=== PATIENT | female | born 1945 | race Caucasian/White ===

== ENCOUNTER 2017-06-08 10:36 | Observation (INO) | payer MEDICARE, MEDICAID ==
[~2017-06-08] VITALS: Ht 160 cm; Wt 77.7 kg
[~2017-06-08 10:36] MED LIST: BIOT10004 PO; CLON0.2T PO; CLOP75 PO; CORE25TA PO; HAWT150C PO; HYDR50TA5 PO; LISI-363 PO; PERC10TA27 PO; PRAV20 PO; VITA-13 PO; [UNRECOGNIZED DRUG - REMARK] PO
[2017-06-08 10:41] VITALS: BP 198/92; PULSE 72; RESP 20; TEMP 97.9; O2SAT 98
[2017-06-08 10:53] VITALS: BP 175/98; PULSE 72; RESP 16; O2SAT 97
--- NOTE | 2017-06-08 11:34 | RADRPT ---
EXAM DATE/TIME: 06/08/2017 11:05 [place] COMPARISON: CHEST SINGLE AP, February 16, 2016, 19:48. INDICATIONS : Short of breath. Possible hair clip in throat swallowed this morning. MEDICAL HISTORY : Hypertension. SURGICAL HISTORY : Lap band. ENCOUNTER: Initial ACUITY: 1 day PAIN SCORE: 7/10 LOCATION: Bilateral Throat. FINDINGS: A single portable frontal view the chest shows a radiopaque density overlying the sternal notch on th is frontal view. The heart is mildly large. Left basilar scarring is stable. A focal convexities seen involving the medial left hemithorax. This is more pronounced from the prior study. Nodularity of th e right hilum is stable. No effusions. CONCLUSION: 1. Radiopaque density projecting over the area of the lower neck on this single projection. I cannot exclude a foreign body within the trachea or esophagus. 2. Focal convexity involve the left hemidiaphragm is more pronounced than the prior exam. Although th is could relate to worsening eventration of the diaphragm I cannot exclude a mass. CT of the thorax i s suggested at some point to further evaluate. Maurizio Ferrer Jr., MD on June 08, 2017 at 11:30 Board Certified Radiologist. This report was verified electronically.
[2017-06-08 11:58] LABS: AUTOMATED NEUTROPHIL # 5.8 TH/MM3 (1.8-7.7); BASOPHIL % 0.6 % (0.0-2.0); EOSINOPHIL # 0.1 TH/MM3 (0-0.4); HEMATOCRIT 35.2 % (35.0-46.0); HEMO FLAGS DIFF FINAL; LYMPH % 20.1 % (9.0-44.0); LYMPHOCYTE # 1.6 TH/MM3 (1.0-4.8); MEAN CELL VOLUME 83.7 FL (80.0-100.0); MEAN CORPUSCULAR HEMOGLOBIN 25.5 PG (27.0-34.0); MEAN CORPUSCULAR HGB CONC 30.5 % (32.0-36.0); MONO % 4.9 % (0.0-8.0); NEUT % 73.4 % (16.0-70.0); PLATELET COUNT 250 TH/MM3 (150-450); RED BLOOD COUNT 4.21 MIL/MM3 (4.00-5.30); RED CELL DISTRIBUTION WIDTH 15.3 % (11.6-17.2); WHITE BLOOD COUNT 7.9 TH/MM3 (4.0-11.0)
[2017-06-08 12:09] LABS: APTT (PATIENT) 28.4 SEC (24.3-30.1); INTERNATIONAL NORMALIZED RATIO 0.9 RATIO; PROTHROMBIN TIME - PATIENT 10.4 SEC (9.8-11.6)
[2017-06-08 12:14] LABS: BICARBONATE 27.5 MEQ/L (21.0-32.0); POTASSIUM 4.3 MEQ/L (3.5-5.1)
[2017-06-08] MEDS ORDERED: PROPOFOL 200 MG/20 ML AMP IV PUSH ONE (12:44)
[2017-06-08] MEDS ORDERED: DO NOT ADM ANY ANTICOAGULANT DRUGS PRN (13:12)
[2017-06-08] MEDS ORDERED: ONDANSETRON HCL 4 MG/2 ML VIAL IV PRN (13:15)
[2017-06-08] MEDS ORDERED: *morphine SULFATE 8 MG/ML PERIprocedure ONLY ONE (13:29)
--- NOTE | 2017-06-08 13:40 | PD ---
HPI Chief Complaint: Foreign Body Time Seen by Provider: 10:47 Travel History International Travel<30 days: No Contact w/Intl Traveler<30days: No History of Present Illness HPI 72-year-old female presents with feeling foreign body in her throat that she accidentally got in there. She has a history of lap band that she follows with Dr. Boyle. She had an outpatient x-ray that showed that she had ingested a foreign body and is here for the operating room. She states no other concerns at this moment. PFSH Past Medical History Narrative Medical By records Arthritis: Yes Autoimmune Disease: No Blood Disorders: No (N) Cancer: No Cardiac Catheterization: Yes Cardiovascular Problems: Yes High Cholesterol: Yes Congestive Heart Failure: Yes Cerebrovascular Accident: Yes Diabetes: Yes (HX-PT HAD LAP BAND SX) Diminished Hearing: No Endocrine: No Genitourinary: No Hepatitis: No Hiatal Hernia: No Hypertension: Yes Immune Disorder: No Implanted Vascular Access Dvce: Yes Musculoskeletal: Yes (ARTHRITIS---BACK PAIN) Neurologic: Yes (NEUROPATHY IN FEET) Psychiatric: No Reproductive: No Respiratory: No Thyroid Disease: No PNEUMOCCOCAL Vaccine (Year): 2 : 1 Para: 1 Miscarriage: 0 : 0 Tubal Ligation: Yes Past Surgical History Narrative Surgical By records Abdominal Surgery: Yes (LAP BAND) Gynecologic Surgery: Yes (TUBAL LIGATION) Joint Replacement: Yes (LEFT ANKLE 2004) Oral Surgery: Yes (TONSILLECTOMY ADNOIDECTOMY) Pacemaker: No Tonsillectomy: Yes Other Surgery: Yes (lap band BY MELODY) Social History Alcohol Use: No Tobacco Use: No Substance Use: No Allergies-Medications (Allergen,Severity, Reaction): Coded Allergies: Sulfa (Sulfonamide Antibiotics) (Unverified Allergy, Severe, UNKNOWN, 05/31) tetanus toxoid, adsorbed (Unverified Allergy, Severe, CHEST PAIN, 05/31/17) banana (Unverified Allergy, Intermediate, HIVES, 05/31/17) meperidine (Unverified Allergy, Mild, HALLUCINATES, 05/31/17) cortisone (Unverified Adverse Reaction, Severe, SKIN BREAKDOWN, 05/31/17) potassium (Unverified Adverse Reaction, Severe, CRAMPS, 05/31/17) "BODY DOES NOT GET RID OF IT" potassium bicarbonate (Unverified Adverse Reaction, Severe, CRAMPS, ) "BODY DOES NOT GET RID OF IT" potassium chloride (Unverified Adverse Reaction, Severe, CRAMPS, 05/31/17) "BODY DOES NOT GET RID OF IT" potassium iodide (Unverified Adverse Reaction, Severe, CRAMPS, 05/31/17) "BODY DOES NOT GET RID OF IT" potassium phosphate (Unverified Adverse Reaction, Severe, CRAMPS, 05/31/17) "BODY DOES NOT GET RID OF IT" Uncoded Allergies: ADHESIVE TAPE (Allergy, Severe, BLISTER, 03/01/13) Reported Meds & Prescriptions Reported Meds & Active Scripts Active Review of Systems ROS Limitations: Other: (going to the OR) Except as stated in HPI: all other systems reviewed are Neg Physical Exam Exam Limitations: Other: (limited as heading to OR) Narrative GENERAL: Well-nourished, well-developed patient. SKIN: Warm and dry. HEAD: Normocephalic and atraumatic. EYES: No injection or drainage. ENT: No nasal drainage noted. NECK: Supple, trachea midline. CARDIOVASCULAR: Regular rate and rhythm RESPIRATORY: No increased effort. No accessory muscle use. NEUROLOGICAL: Awake and alert. Moves all extremities. Normal speech. Data Data Last Documented VS Vital Signs Date Time Temp Pulse Resp B/P (MAP) Pulse Ox O2 Delivery O2 Flow Rate FiO2 06/08/17 10:53 72 16 175/98 (123) 97 Room Air 06/08/17 10:41 97.9 Orders Orders Complete Blood Count With Diff (06/08/17 10:47) Basic Metabolic Panel (Bmp) (06/08/17 10:47) Act Partial Throm Time (Ptt) (06/08/17 10:47) Prothrombin Time / Inr (Pt) (06/08/17 10:47) Chest, Single Ap (06/08/17 ) Electrocardiogram (06/08/17 ) Iv Access Insert/Monitor (06/08/17 10:47) Ecg Monitoring (06/08/17 10:47) Oximetry (06/08/17 10:47) Admit Order (Ed Use Only) (06/08/17 10:54) MDM Medical Decision Making Medical Screen Exam Complete: Yes Emergency Medical Condition: Yes Medical Record Reviewed: Yes (past history confirmed) Differential Diagnosis Ingestion, preop clearance, foreign body Narrative Course Patient will have lab work done and EKG for clearance for the operating room with Dr. Boyle. Questions are answered with patient Physician Communication Physician Communication Dr. Boyle saw patient in the ER and request labs and preop clearance and he will take her to the OR as she had an outpatient x-ray that showed foreign body ingestion, she is his lap band patient, place in same day surgery under his name Diagnosis Primary Impression: Foreign body of neck Tiffany Guo MD Jun 08, 2017 13:40
[2017-06-08] MEDS: PANTOPRAZOLE SODIUM 40 MG VIAL IV PUSH SCH (14:00)
[2017-06-08] MEDS: DEXT 5%-NACL 0.45% 1000 ML INJ 1,000 ML IV SCH ×2 (14:14→22:21)
[2017-06-08] MEDS: PIPERACIL-TAZO 3.375 GM PREMIX 50 ML IV SCH ×2 (14:39→22:21)
[2017-06-08 17:00] VITALS: BP 167/78; PULSE 74; RESP 14; TEMP 96.5; O2SAT 92
--- NOTE | 2017-06-08 18:02 | GIPROC ---
[facility] [address] [place] [facility]. [facility], [address] EGD PROCEDURE REPORT EXAM DATE: 06/08/2017 PATIENT NAME: Chrissy Osorio MR #: [id number] BIRTHDATE: 1945 ATTENDING: Prosper Marie MD ORDER #: [id number] ELECTRONIC EQUIPMENT REPAIRER: Denita Coleman and Claude Martinez STATUS: inpatient INDICATIONS: The patient is a 72 yr old female here for an EGD due to foreign body removal PROCEDURE PERFORMED: EGD w/ fb removal MEDICATIONS: Per Anesthesia and None. TOPICAL ANESTHETIC: none CONSENT: The patient understands the risks and benefits of the procedure and understands that these risks include, but are not limited to: sedation, allergic reaction, infection, perforation and/or bleeding. Alternative means of evaluation and treatment include, among others: physical exam, x-rays, and/or surgical intervention. The patient elects to proceed with this endoscopic procedure. medical equipment was checked for proper function. Hand hygiene and appropriate measures for infection prevention was taken. After the risks, benefits and alternatives of the procedure were thoroughly explained, Informed consent was verified, confirmed and timeout was successfully executed by the treatment team. The patient was anesthetized with anesthesia and the Cameramaax [id number] endoscope was introduced through the mouth and advanced. Identification of a foreign body lodged in the esophagus 15cm from incisors with small laceration and mild controlled bleeding. Tooth grasper used to retreive specimen. The scope was advanced to the first portion of the duodenum. Retroflexion was not performed The gastroscope was then slowly withdrawn and removed. ESOPHAGUS: Foreign body identified 15cm from incisors. ADVERSE EVENTS: There were no complications. IMPRESSIONS: 1. Foreign body identified and removed 15cm from incisors 2. small mucosal tears noted from FB 2. Retroflexion was not performed RECOMMENDATIONS: 1. Start PPI 2. Admit to hospital 3. UGI tomorrow PATIENT CONDITION: fair DISPOSITION: Observation REPEAT EXAM: NONE Prosper Marie MD eSigned: Prosper Marie MD 06/08/2017 6:02 PM cc: PATIENT NAME: Chrissy Osorio MR#: [id number]
[2017-06-08] MEDS ORDERED: HYDR-3801 PO (18:26)
--- NOTE | 2017-06-08 19:26 | EKG ---
Date Performed: 06/08/2017 Time Performed: 11:00:47 PTAGE: 72 years EKG: Sinus rhythm WITH FIRST DEGREE AV BLOCK LEFT BUNDLE BRANCH BLOCK ABNORMAL ECG PREVIOUS TRACING : 02/16/2016 21.44 Compared to prior tracing no significant change DOCTOR: Wilman Conner Interpretating Date/Time 06/08/2017 19:24:52
[2017-06-08 20:00] VITALS: BP 139/84; PULSE 68; RESP 18; TEMP 97.7; O2SAT 93
[2017-06-08 20:07] VITALS: PULSE 64
[2017-06-08 20:21] VITALS: O2SAT 98
--- NOTE | 2017-06-08 21:44 | PD.CONS ---
HPI Service [facility] . Consult Requested By Dr. Marie . Reason for Consult Medical management for hypertension and neuropathy. Primary Care Physician Rk Oliver DO . Diagnoses: (1) Foreign body in esophagus (2) Hypertension (3) Neuropathy History of Present Illness The patient is seen in the hospital room following EGD by Dr. Marie to remove foreign body from esophagus. Her only current complaint is severe neuropathic pain in her bilateral lower extremities - she takes Percocet at home for this. This morning, she was taking the medications that she had laid on her bedside table in the dark and accidentally grabbed a butterfly hair clip and swallowed it. She had immediate severe pain in the lower portion of her neck but no sensation of choking. She alerted EMS but they instructed her to see one of her physicians but did not feel like she needed to be transported to the hospital. She said she waited outside Dr. Boyle's office this morning and he ordered imaging at [facility] which showed the foreign body in her esophagus. She denies any chest pain or shortness of breath. She denies any recent illness, fevers, hemoptysis, hematemesis, black or bloody stools. She reports a chronic lung disease that she sees Dr. Gregg as an outpatient for. She says the disease is the result of having "whooping cough" as a child. She cannot recall the name of that disease but states the name is "long" and she denies any history of COPD, asthma, pulmonary fibrosis, bronchiectasis, or chronic bronchitis. She likely has an element of COPD given her smoking history. She has a chronic cough with green colored sputum and has an inhaler and nebulizer at home. She uses nebulizer twice daily and is not on home supplemental oxygen. No recent changes. Review of Systems Except as stated in HPI: all other systems reviewed are Neg Past Family Social History Allergies: Coded Allergies: Sulfa (Sulfonamide Antibiotics) (Unverified Allergy, Severe, UNKNOWN, 05/31) tetanus toxoid, adsorbed (Unverified Allergy, Severe, CHEST PAIN, 05/31/17) banana (Unverified Allergy, Intermediate, HIVES, 05/31/17) meperidine (Unverified Allergy, Mild, HALLUCINATES, 05/31/17) cortisone (Unverified Adverse Reaction, Severe, SKIN BREAKDOWN, 05/31/17) potassium (Unverified Adverse Reaction, Severe, CRAMPS, 05/31/17) "BODY DOES NOT GET RID OF IT" potassium bicarbonate (Unverified Adverse Reaction, Severe, CRAMPS, ) "BODY DOES NOT GET RID OF IT" potassium chloride (Unverified Adverse Reaction, Severe, CRAMPS, 05/31/17) "BODY DOES NOT GET RID OF IT" potassium iodide (Unverified Adverse Reaction, Severe, CRAMPS, 05/31/17) "BODY DOES NOT GET RID OF IT" potassium phosphate (Unverified Adverse Reaction, Severe, CRAMPS, 05/31/17) "BODY DOES NOT GET RID OF IT" Uncoded Allergies: ADHESIVE TAPE (Allergy, Severe, BLISTER, 03/01/13) Past Medical History Chronic lung disease - she sees Dr. Gregg as an outpatient History of diabetes mellitus requiring no medication since lap band in 2009 Hypertension requiring multiple medications for management Severe neuropathy in bilateral lower extremities Congestive heart failure 12-15 years ago; denies myocardial infarction or coronary artery disease, no recurrence in 12-15 years Left leg DVT 2 years ago with 6 weeks of anticoagulation following Possible TIA 1 year ago Acute kidney disease about one year ago that spontaneously resolved History of medication-related hyperkalemia - resolved COPD, emphysema, asthma, pulmonary fibrosis, bronchiectasis, CAD, GA, gastroesophageal esophageal reflux disease, liver problems, denies PE, CVA, seizure, or cancer history. Past Surgical History LAP-BAND with hiatal hernia repair 2009 - Dr. Boyle Right total hip replacement one year ago Tonsillectomy and adenoidectomy as a child Bilateral tubal ligation Left ankle repair . Reported Medications Respiratory nebulizer Respiratory inhaler - uncertain of name Reported Meds & Active Scripts Active Reported Clonidine Hcl (Clonidine HCl) 0.2 Mg Tab 0.2 Mg PO BID Pravastatin Sodium 20 Mg Tab 20 Mg PO DAILY Biotin 1 000 Tab 10,000 Mcg PO DAILY DOSE UNKNOWN Percocet 10-325 mg (Oxycodone-Acetaminophen 10-325 mg) 1 Tab 1 Tab PO QIDPRN Vitamin D3 (Cholecalciferol) 1,000 Unit Tab 1,000 Unit PO DAILY Lisinopril 20 mg (Lisinopril) 20 Mg Tab 1 Tab PO BID [place] 150 Mg Cap 150 Mg PO Hydrochlorothiazide 50 Mg Tab 50 Mg PO TID Coreg 25 mg (Carvedilol) 25 Mg Tab 1 Tab PO BID Hydralazine (Hydralazine HCl) 100 Mg Tab 50 Mg PO BID Take with meals . Active Ordered Medications Current Medications Propofol (Diprivan 200 Mg/20 ml Inj) 500 mg STK-MED ONCE IV PUSH ; Start at 12:44; Stop 06/08/17 at 12:54; Status DC Ondansetron HCl (Zofran Inj) 4 mg Q4H PRN IV NAUSEA OR VOMITING; Start at 13:15 Dextrose/Sodium Chloride 1,000 ml @ 125 mls/hr Q8H IV Last administered on 22:21; Start 06/08/17 at 14:00 Piperacillin Sod/ Tazobactam Sod 50 ml @ 100 mls/hr Q8H IV Last administered on 06/08/17 22:21; Start 06/08/17 at 15:00 Pantoprazole Sodium (Protonix Inj) 40 mg Q12H IV PUSH Last administered on 06/08 14:00; Start 06/08/17 at 14:00 Morphine Sulfate (*morphine INJ PERIprocedure ONLY) 8 mg STK-MED ONCE .ROUTE Last administered on 06/08/17 13:29; Start 06/08/17 at 13:29; Stop 06/08/17 at 13:30; Status DC Fentanyl Citrate (fentaNYL INJ) 100 mcg STK-MED ONCE .ROUTE ; Start 06/08/17 at 13:41; Stop 06/08/17 at 13:42; Status DC Miscellaneous Information ALL NURSING DEPARTME... UNSCH PRN .XX SEE LABEL COMMENTS; Start 06/08/17 at 13:12; Stop 06/09/17 at 13:11 Oxycodone/ Acetaminophen (Percocet 10-325 Mg) 1 tab ONCE ONCE PO Last administered on 06/08/17 21:58; Start 06/08/17 at 21:45; Stop 06/08/17 at 21:46 ; Status DC Clonidine (Catapres) 0.2 mg BID PO ; Start 06/08/17 at 22:15 Hydralazine HCl (Apresoline) 50 mg BID PO ; Start 06/08/17 at 22:15 Hydrochlorothiazide (Hydrodiuril) 50 mg TID PO ; Start 06/09/17 at 09:00 Lisinopril (Prinivil) 20 mg BID PO ; Start 06/08/17 at 22:15 Pravastatin Sodium (Pravachol) 20 mg DAILY PO ; Start 06/09/17 at 09:00 Carvedilol (Coreg) 25 mg BID PO ; Start 06/08/17 at 22:15 Oxycodone/ Acetaminophen (Percocet 10-325 Mg) 1 tab Q6H PRN PO Pain 1- 10; Start 06/09/17 at 05:00 . Family History Mother with CVA age 85 Father with paraplegia from pneumonia age 85 . Social History Tobacco: Smoked 15 years ago for about 40 years one pack per day Alcohol: Denies Illicit drugs: Denies . Physical Exam Vital Signs Vital Signs Date Time Temp Pulse Resp B/P (MAP) Pulse Ox O2 Delivery O2 Flow Rate FiO2 06/08/17 20:21 98 06/08/17 20:00 97.7 68 18 139/84 (102) 93 06/08/17 17:00 96.5 74 14 167/78 (107) 92 06/08/17 15:45 98.4 65 15 142/68 (92) 96 Nasal Cannula 2 06/08/17 15:00 59 14 132/64 (86) 95 Nasal Cannula 2 06/08/17 14:30 65 15 155/70 (98) 95 Nasal Cannula 2 06/08/17 14:00 81 15 142/64 (90) 95 Nasal Cannula 2 06/08/17 13:45 70 14 143/64 (90) 93 Nasal Cannula 2 06/08/17 13:30 71 12 135/81 (99) 93 Nasal Cannula 2 06/08/17 13:15 73 13 150/71 (97) 98 Nasal Cannula 2 06/08/17 13:08 97.8 78 16 148/82 (104) 97 Nasal Cannula 2 06/08/17 10:53 72 16 175/98 (123) 97 Room Air 06/08/17 10:41 97.9 72 20 198/92 (127) 98 Room Air Physical Exam GENERAL: This is an elderly female patient, in no apparent distress. SKIN: No rashes. Cool and dry. HEAD: Atraumatic. Normocephalic. EYES: No scleral icterus. No injection or drainage. ENT: Nose without bleeding, purulent drainage. NECK: Trachea midline. No JVD. CARDIOVASCULAR: Regular rate and rhythm without murmurs, gallops, or rubs. Left lower extremity darkly discolored below knee to ankle consistent with venous stasis. RESPIRATORY: Clear to auscultation. Breath sounds equal bilaterally. No rales, or rhonchi. Few bilateral expiratory wheezes noted in upper lung centeno. GASTROINTESTINAL: Abdomen soft, non-tender, nondistended. No guarding. MUSCULOSKELETAL: Extremities without clubbing, cyanosis, or edema. No calf tenderness. NEUROLOGICAL: Awake and alert. Motor and sensory grossly within normal limits. Normal speech. . Laboratory Laboratory Tests Test 06/08/17 11:42 White Blood Count 7.9 Red Blood Count 4.21 Hemoglobin 10.7 Hematocrit 35.2 Mean Corpuscular Volume 83.7 Mean Corpuscular Hemoglobin 25.5 Mean Corpuscular Hemoglobin Concent 30.5 Red Cell Distribution Width 15.3 Platelet Count 250 Mean Platelet Volume 7.2 Neutrophils (%) (Auto) 73.4 Lymphocytes (%) (Auto) 20.1 Monocytes (%) (Auto) 4.9 Eosinophils (%) (Auto) 1.0 Basophils (%) (Auto) 0.6 Neutrophils # (Auto) 5.8 Lymphocytes # (Auto) 1.6 Monocytes # (Auto) 0.4 Eosinophils # (Auto) 0.1 Basophils # (Auto) 0.0 CBC Comment DIFF FINAL Differential Comment Prothrombin Time 10.4 Prothromb Time International Ratio 0.9 Activated Partial Thromboplast Time 28.4 Blood Urea Nitrogen 28 Creatinine 1.18 Random Glucose 112 Calcium Level 9.2 Sodium Level 141 Potassium Level 4.3 Chloride Level 106 Carbon Dioxide Level 27.5 Anion Gap 8 Estimat Glomerular Filtration Rate 45 Result Diagram: 06/08/17 1142 06/08/17 1142 Imaging Last Impressions Chest X-Ray 06/08/17 0000 Signed Impressions: Service Date/Time: Thursday, June 08, 2017 11:05 - CONCLUSION: 1. Radiopaque density projecting over the area of the lower neck on this single projection. I cannot exclude a foreign body within the trachea or esophagus. 2. Focal convexity involve the left hemidiaphragm is more pronounced than the prior exam. Although this could relate to worsening eventration of the diaphragm I cannot exclude a mass. CT of the thorax is suggested at some point to further evaluate. Maurizio Ferrer Jr., MD . Assessment and Plan Problem List: (1) Foreign body in esophagus ICD Code: T18.108A - Unspecified foreign body in esophagus causing other injury , initial encounter (2) Hypertension ICD Code: I10 - Essential (primary) hypertension (3) Neuropathy ICD Code: G62.9 - Polyneuropathy, unspecified (4) Chronic lung disease ICD Code: J98.4 - Other disorders of lung Assessment and Plan Foreign body in esophagus - Management per Dr. Marie - Upper GI series pending in a.m. to rule out esophageal leak - on Zosyn IV per Dr. Marie's orders Hypertension - Resume home medications - Monitor trends in blood pressure readings - Adjust treatments as needed Neuropathy - resume home analgesic medication Chronic lung disease (denies COPD, pulmonary fibrosis, or bronchiectasis but couldn't remember name of illness - states it is a "long" name - says Legal Assistant told her it was a result of having "whooping cough" in childhood) - suspect underlying COPD given patient's smoking history - sees Dr. Gregg as an outpatient - Duo nebulizers q4h PRN shortness of breath/wheezing - I have asked nursing to try to determine name of patient's inhaler so that we may continue this home medication if it is a prophylactic medication - it is not on the medication reconciliation. Given patient's history of TIA and DVT, I recommended DVT prophylaxis with SCDs and TEDs as anticoagulants are contraindicated per Dr. Marie's order. The patient refuses DVT prophylaxis and is capacitated to make her own decisions. I have advised her of the possible consequences including DVT, pulmonary embolism, stroke, and even . She continues to refuse SCDs/TEDs. Discussed with gas charger. Discussed Condition With RN and Dr. Dobbins . Nyasia Flannery Jun 08, 2017 21:43
[2017-06-08] MEDS ORDERED: oxyCODONE/ACETAMINOPHEN 10 MG/325 MG TAB PO ONE (21:45)
[2017-06-08] MEDS ORDERED: VITA-13 PO (22:06)
[2017-06-08] MEDS ORDERED: HYDR50TA5 PO (22:06)
[2017-06-08] MEDS ORDERED: CORE25TA PO (22:06)
[2017-06-08] MEDS ORDERED: PERC10TA27 PO (22:06)
[2017-06-08] MEDS ORDERED: BIOT10004 PO (22:06)
[2017-06-08] MEDS ORDERED: LISI-363 PO (22:06)
[2017-06-08] MEDS ORDERED: PRAV20 PO (22:06)
[2017-06-08] MEDS ORDERED: HAWT150C PO (22:06)
[2017-06-08] MEDS ORDERED: CLON0.2T PO (22:06)
[2017-06-08] MEDS: LISINOPRIL 20 MG TAB PO SCH (22:26)
[2017-06-08] MEDS: hydrALAZINE HCL 100 MG TAB PO SCH (22:26)
[2017-06-08] MEDS: CARVEDILOL 12.5 MG TAB PO SCH (22:27)
[2017-06-08] MEDS: cloNIDine HCL 0.2 MG TAB PO SCH (22:28)
[2017-06-08] MEDS ORDERED: RESP: ALBUTEROL 2.5 MG/IPRATROPIUM 0.5 MG NEB (PRN) NEB (22:45)
[2017-06-09] VITALS: BP 126/80; PULSE 67; RESP 18; TEMP 97.1; O2SAT 94
[2017-06-09] MEDS: PANTOPRAZOLE SODIUM 40 MG VIAL IV PUSH SCH ×2 (02:40→13:57)
[2017-06-09 04:00] VITALS: BP 144/79; PULSE 71; RESP 18; TEMP 97.6; O2SAT 92
[2017-06-09] MEDS ORDERED: oxyCODONE/ACETAMINOPHEN 10 MG/325 MG TAB PO PRN (05:00)
[2017-06-09] MEDS: DEXT 5%-NACL 0.45% 1000 ML INJ 1,000 ML IV SCH ×2 (06:00→13:57)
[2017-06-09] MEDS: PIPERACIL-TAZO 3.375 GM PREMIX 50 ML IV SCH (06:01)
[2017-06-09] MEDS: cloNIDine HCL 0.2 MG TAB PO SCH (06:40)
[2017-06-09] MEDS: LISINOPRIL 20 MG TAB PO SCH (06:41)
[2017-06-09] MEDS: hydrALAZINE HCL 100 MG TAB PO SCH (06:41)
[2017-06-09] MEDS: CARVEDILOL 12.5 MG TAB PO SCH (06:41)
[2017-06-09 07:17] LABS: BICARBONATE 19.4 MEQ/L (21.0-32.0); POTASSIUM 4.9 MEQ/L (3.5-5.1)
--- NOTE | 2017-06-09 07:28 | MH ---
cc: JP HUTCHINS MD DATE OF ADMISSION 06/08/2017 CHIEF COMPLAINT Ingestion of foreign body HISTORY OF PRESENT ILLNESS The patient is a 72-year-old female with a history of a laparoscopic gastric band in 2009. She presents with complaints of esophageal pain. She states this morning she was taking her medication and accidentally ingested a clip and showed at the emergency department with significant onset of throat and esophageal pain. She denies any fevers, chest pain or hemoptysis or fevers. She does state the pain is mild 4/10 located in the mid upper esophagus, but nonradiating and sharp with no improvement in staying still. She came to the emergency for further evaluation including a chest x-ray showing the presence of a hair clipped and foreign body presentation. There is no evidence of pneumothorax and the patient is otherwise stable. PAST MEDICAL HISTORY 1. Morbid obesity 2. Arthritis 3. CHF 4. Hypercholesterolemia 5. Diabetes 6. Back pain PAST SURGICAL HISTORY 1. Laparoscopic band placement 2. Tubal ligation 3. Left ankle surgery 4. Tonsillectomy SOCIAL HISTORY Denies smoking, ETOH or IVDA. ALLERGIES TAPE, SULFA, BANANA, CORTISONE, MEPERIDINE, POTASSIUM, BICARB. MEDICATIONS See EMR. FAMILY HISTORY denies diabetes or htn REVIEW OF SYSTEMS GENERAL: Denies fevers or chills. HEENT: Complains of throat pain. NECK: Complains of pain. Denies swelling. Chest: Denies cough or wheeze. CARDIAC: Denies palpitations or chest pain. ABDOMEN: Denies nausea, vomiting, or abdominal pain. : Denies dysuria or hematuria. ENDOCRINE: Polyuria, diabetes. NEUROLOGIC: Denies numbness or tingling. PHYSICAL EXAMINATION GENERAL: The patient is in no acute distress. VITAL SIGNS: Temperature 97.9, pulse 72, respirations 16, blood pressure 175/98, saturation 97%. HEENT: PERRLA, pupils equal round reactive. NECK: Supple. Oral mucosa evaluated without evidence of bloody sputum. No crepitus. LUNGS: Clear to auscultation, bilateral expansion. HEART: S1-S2, regular. ABDOMEN: Soft, nontender, nondistended. Well-healed incision scars, port in place. EXTREMITIES: Warm, well-perfused. NEUROLOGIC: 5/5 motor all extremities. A&O times four. Sensation intact. PSYCH: Good insight and okay judgment. LABORATORY AND DIAGNOSTIC DATA WBC 7.9, hemoglobin 10.7, hematocrit 35.2, platelets 250. Sodium 141, potassium 4.9, chloride 106, BUN 28, creatinine 1.1, glucose 112, INR 0.9,, PTT 28.4. CHEST X-RAY Reviewed by myself with the presence of projection over the lower neck concern for foreign body. ASSESSMENT The patient is 72-year-old female status post accidental ingestion of foreign body, hair clip. Patient mistook her hair clip for her pills by her night stand. PLAN A full clinical radiologic and laboratory workup of the issue including a foreign body retained in the esophagus. At this point, we will take the patient to the OR for endoscopic evaluation and foreign body removal. We will place the patient on antibiotics, keep the patient n.p.o., IV fluids and pain control. Pending endoscopic workup, I will consider upper GI for rule out of perforation of the esophagus. MD BHASKAR Rea/LISE /8:13 PM /7:17 AM MTDNicky
[2017-06-09 07:32] LABS: AUTOMATED NEUTROPHIL # 4.1 TH/MM3 (1.8-7.7); BASOPHIL % 0.4 % (0.0-2.0); EOSINOPHIL % 0.1 % (0.0-4.0); HEMATOCRIT 31.1 % (35.0-46.0); LYMPHOCYTE # 1.4 TH/MM3 (1.0-4.8); MEAN CELL VOLUME 82.6 FL (80.0-100.0); MEAN CORPUSCULAR HEMOGLOBIN 25.5 PG (27.0-34.0); MEAN CORPUSCULAR HGB CONC 30.8 % (32.0-36.0); MONO % 5.1 % (0.0-8.0); NEUT % 70.4 % (16.0-70.0); PLATELET COUNT 196 TH/MM3 (150-450); RED BLOOD COUNT 3.76 MIL/MM3 (4.00-5.30); RED CELL DISTRIBUTION WIDTH 15.4 % (11.6-17.2); WHITE BLOOD COUNT 5.9 TH/MM3 (4.0-11.0)
[2017-06-09 07:41] LABS: HEMO FLAGS AUTO DIFF
[2017-06-09 08:00] VITALS: BP 115/65; PULSE 65; RESP 20; TEMP 96.3; O2SAT 91
[2017-06-09 08:41] LABS: SCAN/DIFF AUTO DIFF CONFIRMED
[2017-06-09] MEDS ORDERED: PRAVASTATIN SOD 20 MG TAB PO SCH (09:00)
[2017-06-09] MEDS: HYDROCHLOROTHIAZIDE 50 MG TAB PO SCH ×2 (09:07→13:00)
--- NOTE | 2017-06-09 11:50 | HHI.PR ---
Subjective Subjective Notes Sitting up in bed Denies bleeding Denies any GI complaints Refusing UGI Objective Vitals/I&O Vital Signs Date Time Temp Pulse Resp B/P (MAP) Pulse Ox O2 Delivery O2 Flow Rate FiO2 06/09/17 08:00 96.3 65 20 115/65 (82) 91 06/08/17 15:45 Nasal Cannula 2 Labs Laboratory Tests Test 06/09/17 05:30 White Blood Count 5.9 Red Blood Count 3.76 Hemoglobin 9.6 Hematocrit 31.1 Mean Corpuscular Volume 82.6 Mean Corpuscular Hemoglobin 25.5 Mean Corpuscular Hemoglobin Concent 30.8 Red Cell Distribution Width 15.4 Platelet Count 196 Mean Platelet Volume 8.0 Neutrophils (%) (Auto) 70.4 Lymphocytes (%) (Auto) 24.0 Monocytes (%) (Auto) 5.1 Eosinophils (%) (Auto) 0.1 Basophils (%) (Auto) 0.4 Neutrophils # (Auto) 4.1 Lymphocytes # (Auto) 1.4 Monocytes # (Auto) 0.3 Eosinophils # (Auto) 0.0 Basophils # (Auto) 0.0 CBC Comment AUTO DIFF Differential Comment AUTO DIFF CONFIRMED Hematology Comments Blood Urea Nitrogen 21 Creatinine 0.95 Random Glucose 121 Calcium Level 8.4 Sodium Level 138 Potassium Level 4.9 Chloride Level 110 Carbon Dioxide Level 19.4 Anion Gap 9 Estimat Glomerular Filtration Rate 58 Cardiovascular: Regular Lungs: Clear Abdomen: Non-tender Extremities: Perfused A/P Assessment and Plan 72yo female s/p removal of foreign body from esophagus which she claimed she accidentally swallowed -Full liquids -Can D/C home after tolerating tray -Follow up in the office on Tuesday Attending Statement patient seen at bedside no fevers wbc normal requesting ugi however pt refusing discussed risks of foregoing ugi. patient understands but is insistent possible d/c if tolerating liquids Attestation The exam, history, and the medical decision-making described in the above note were completed with the assistance of the mid-level provider. I reviewed and agree with the findings presented. I attest that I had a [id number] encounter with the patient on the same day, and personally performed and documented my assessment and findings in the medical record. Adelaida Delcid Jun 09, 2017 11:50 Prosper Marie MD Jun 13, 2017 22:08
[2017-06-09 12:28] VITALS: BP 152/78; PULSE 65; RESP 21; TEMP 96.9; O2SAT 96
[2017-06-09 13:26] VITALS: O2SAT 98
[2017-06-09 14:41] VITALS: BP 142/68
--- NOTE | 2017-06-09 14:50 | HHI.PR ---
Subjective Remarks Follow up after accidental swallowing of foreign object. Patient is waiting to go home. She has tolerated lunch with full liquids. Denies any pain, sob, chest pain, fever or chills. Objective Vitals Vital Signs Date Time Temp Pulse Resp B/P (MAP) Pulse Ox O2 Delivery O2 Flow Rate FiO2 06/09/17 14:41 142/68 (92) 06/09/17 13:26 98 21 06/09/17 12:28 96.9 65 21 152/78 (102) 96 06/09/17 08:00 96.3 65 20 115/65 (82) 91 06/09/17 07:00 16 06/09/17 04:00 97.6 71 18 144/79 (100) 92 06/09/17 00:00 97.1 67 18 126/80 (95) 94 06/08/17 22:58 18 06/08/17 20:21 98 06/08/17 20:07 64 06/08/17 20:00 97.7 68 18 139/84 (102) 93 06/08/17 17:00 96.5 74 14 167/78 (107) 92 06/08/17 15:45 98.4 65 15 142/68 (92) 96 Nasal Cannula 2 06/08/17 15:00 59 14 132/64 (86) 95 Nasal Cannula 2 I/O 06/08/17 06/08/17 06/08/17 06/09/17 06/09/17 06/09/17 07:00 15:00 23:00 07:00 15:00 23:00 Intake Total 750 ml 103 ml 240 ml Output Total 0 ml 300 ml Balance 750 ml 103 ml -300 ml 240 ml Intake Oral 240 ml IV Total 103 ml Other 750 ml Output Urine Total 300 ml Estimated Blood Loss 0 ml # Voids 2 6 Result Diagram: 06/09/1730 06/09/17 0530 Objective Remarks GENERAL: sitting in bed in NAD SKIN: Warm and dry. CARDIOVASCULAR: Regular rate and rhythm. RESPIRATORY: No accessory muscle use. Clear to auscultation. Breath sounds equal bilaterally. GASTROINTESTINAL: Abdomen soft, non-tender, nondistended. MUSCULOSKELETAL: Extremities without clubbing, cyanosis, or edema. No obvious deformities. NEUROLOGICAL: Awake and alert. No obvious cranial nerve deficits. Motor grossly within normal limits. Normal speech. PSYCHIATRIC: Appropriate mood and affect; insight and judgment normal. Medications and IVs Current Medications Medications (Trade) Dose Ordered Sig/Antonio Route Start Time Stop Time Status Last Admin (Zofran Inj) 4 mg Q4H PRN IV 06/08/17 13:15 Dextrose/Sodium Chloride 1,000 ml @ 125 mls/hr Q8H IV 06/08/17 14:00 06/08/17 22:21 Piperacillin Sod/ Tazobactam Sod 50 ml @ 100 mls/hr Q8H IV 06/08/17 15:00 06/09/17 06:01 (Protonix Inj) 40 mg Q12H IV PUSH 06/08/17 14:00 06/08/17 14:00 (Catapres) 0.2 mg BID PO 06/08/17 22:15 06/09/17 06:40 (Apresoline) 50 mg BID PO 06/08/17 22:15 06/09/17 06:41 (Hydrodiuril) 50 mg TID PO 06/09/17 09:00 06/09/17 09:07 (Prinivil) 20 mg BID PO 06/08/17 22:15 06/09/17 06:41 (Pravachol) 20 mg DAILY PO 06/09/17 09:00 06/09/17 09:03 (Coreg) 25 mg BID PO 06/08/17 22:15 06/09/17 06:41 (Percocet 10-325 Mg) 1 tab Q6H PRN PO 06/09/17 05:00 06/09/17 06:00 (Duoneb Neb) 1 ampule Q4HR NEB PRN NEB 06/08/17 22:45 Urinary Catheter: No Vascular Central Line Catheter: No A/P Problem List: (1) Foreign body in esophagus ICD Code: T18.108A - Unspecified foreign body in esophagus causing other injury , initial encounter (2) Hypertension ICD Code: I10 - Essential (primary) hypertension (3) Neuropathy ICD Code: G62.9 - Polyneuropathy, unspecified (4) Chronic lung disease ICD Code: J98.4 - Other disorders of lung Assessment and Plan 72 y/o presented to the ED after accidentally swallowing a foreign object Foreign body in esophagus, s/p EGD - Management per Dr. Marie - D/c on full liquids, follow up Dr. Marie in 1 week Hypertension, chronic - Cont home medications - Adjust treatments as needed Neuropathy - resume home analgesic medication Chronic lung disease (denies COPD, pulmonary fibrosis, or bronchiectasis but couldn't remember name of illness - states it is a "long" name - says Data Entry Operator told her it was a result of having "whooping cough" in childhood) - suspect underlying COPD given patient's smoking history - sees Dr. Gregg as an outpatient - Duo nebulizers q4h PRN shortness of breath/wheezing DVT prophylaxis with SCDs and Sarai Holt Jun 09, 2017 14:50
== END 2017-06-09 14:47 | disposition home or self-care (01) ==
LOC: NEPE 10:36 → NEDA 10:55 → HOCA 15:54
PROVIDERS: ADMIT Surgery; ATTEND Surgery
DX: T18.108A Unspecified foreign body in esophagus causing other injury, initial encounter (principal); J44.9 Chronic obstructive pulmonary disease, unspecified; I25.10 Atherosclerotic heart disease of native coronary artery without angina pectoris; I10 Essential (primary) hypertension; G62.9 Polyneuropathy, unspecified; J98.4 Other disorders of lung; Z01.812 Encounter for preprocedural laboratory examination
CPT/HCPCS: 00740; 43247; 71010; 80048; 85025; 85610; 85730; 93005; 94150; 96365; 96366; 96375; 99285; C9113; G0378; J2270; J2543; J3010